=== PATIENT | female | born 1955 | race Caucasian/White ===

== ENCOUNTER 2017-07-02 10:17 | Outpatient (CLI) | payer BC ==
--- NOTE | 2017-07-02 12:23 | Diagnostic Imaging Report ---
Indication: Pain, hypothyroidism, swelling Technique: Grayscale and duplex images of the thyroid Comparison: none Findings: Right thyroid lobe measures 4.8 cm length x 2.6 cm AP. Left thyroid lobe measures 4.4 cm length x 2.1 cm AP. Both thyroid lobes demonstrate heterogeneous echogenicity, as well as occasional focal discrete nodules. Among these is a cyst in the left upper pole which measures 8 mm in diameter and a solid nodule measuring 9 mm diameter the posterior left lower pole. No focal abnormality. Impression: Diffusely enlarged thyroid Largest discrete nodules as below: Cystic or almost completely cystic (0 points), anechoic (0 points), not isuoqv-ccfv-[id number] (0 points), ill-defined (0 points) and smooth (0 points) nodule with none echogenic foci or large comet-tail artifacts (0 points), measuring 0.8 cm in the maximum diameter totals 0 points, consistent with ACR TI-RADS Category TR1. Solid or almost completely solid (2 points), isoechoic (1 point), not [id number] (0 points), ill-defined (0 points) nodule with none echogenic foci or large comet-tail artifacts (0 points), measuring 0.9 cm in the maximum diameter totals 3 points, consistent with ACR TI-RADS Category TR3. ACR TI-RADS Category TR3. Recommendation: For TR3 nodules measuring less than 1.5 cm, recommend no fine needle aspiration or follow-up. Benny FN, Dionne WD, Poncho EG, et al. ACR Thyroid Imaging, Reporting and Data System (TI-RADS): White Paper of the ACR TI-RADS Committee. J Am Chani Radiol 2017;14:587-595.
== END 2017-07-02 12:17 | disposition home or self-care (01) ==
LOC: ULS 10:17
DX: E03.9 Hypothyroidism, unspecified (principal); E04.1 Nontoxic single thyroid nodule
CPT/HCPCS: 76536